=== PATIENT | male | born 1975 | race Caucasian/White ===

== ENCOUNTER 2018-07-04 10:59 | Emergency (ER) | payer OTHER ==
[2018-07-04 12:53] LABS: Absolute Monocytes 0.6 K/uL (0.1-1.3); Absolute Neutrophil 4.4 K/uL (1.8-8.0); Basophils % 0.4 % (0-1.3); Eosinophils % 1.7 % (0-4.4); Hematocrit 45.9 % (39.6-49.0); Lymphocytes % 16.8 % (15.3-44.8); MCH 32.8 pg (27.0-35.0); MPV 9.3 fL (7.6-11.3); Monocytes % 9.2 % (3.3-12.3); RBC Red Blood Cell Count 4.99 M/uL (4.33-5.43)
[2018-07-04 13:01] LABS: Protime INR 0.96
[2018-07-04 13:14] LABS: ALT/SGPT 34 U/L (12-78); AST/SGOT 20 U/L (15-37); Alkaline Phosphatase 78 U/L (45-117); BUN Blood Urea Nitrogen 15 mg/dL (7-18); Bicarbonate 30 mmol/L (21-32); Bilirubin Direct 0.1 mg/dL (0-0.2); Bilirubin Total 0.7 mg/dL (0.2-1.0); Glucose Level 83 mg/dL (74-106); Lipase 90 U/L (73-393); Magnesium 2.3 mg/dL (1.8-2.4); NT PRO-BNP 66 pg/mL (<125); Potassium 4.1 mmol/L (3.5-5.1); Protein, Total 7.8 g/dL (6.4-8.2); Sodium Level 144 mmol/L (136-145); Troponin (Emerg Dept Use Only) < 0.02 ng/mL (0.0-0.045)
[2018-07-04 13:57] LABS: Urine Blood NEGATIVE (NEG); Urine Glucose NEGATIVE (NEG); Urine Protein 1+ (NEG); Urine Specific Gravity 1.025 (1.005-1.030)
--- NOTE | 2018-07-04 14:42 | RAD REPORT ---
EXAM DESCRIPTION: RAD - Chest Single View - 07/04/2018 12:41 pm CLINICAL HISTORY: abd pain<Reason For Exam>abd pain Hypertension COMPARISON: No comparisons<Comparisons> TECHNIQUE: AP portable chest image was obtained 1235 hours . FINDINGS: Lungs are clear. Heart and vasculature are normal. No measurable pleural effusion and no p neumothorax. No gross bony abnormality seen. No acute aortic findings suspected. IMPRESSION: No acute cardiopulmonary process.
--- NOTE | 2018-07-04 14:46 | RAD REPORT ---
EXAM DESCRIPTION: CT - Abdomen Pelvis W Contrast - 07/04/2018 1:43 pm CLINICAL HISTORY: abd pain<Reason For Exam>abd pain COMPARISON: No comparisons<Comparisons> None. TECHNIQUE: Biphasic, helical CT imaging of the abdomen and pelvis was performed following 100 ml non -ionic IV contrast. Oral contrast was given. All CT scans are performed using dose optimization technique as appropriate and may include automated exposure control or mA/KV adjustment according to patient size. FINDINGS: No suspicious findings in the lung bases. The liver, spleen, and pancreas show no suspicious findings. Gallbladder is absent. No biliary tree d ilatation. Symmetric renal function is seen with no hydronephrosis or suspicious renal mass. Punctate nonobstruc ting caliceal calculi present. No pyelonephritis or acute renal parenchymal process. No urinary bladd er abnormality. No dilated bowel loops or bowel wall thickening. Appendix is normal. No free air, free fluid or infla mmatory stranding. No hernia, mass or bulky lymphadenopathy. Gastric surgical changes are noted. No acute gastric finding. No adrenal abnormality. No suspicious bony findings. IMPRESSION: Contrast enhanced CT abdomen and pelvis showing no significant or suspicious finding.
--- NOTE | 2018-07-04 15:03 | ER ---
Nurse's Notes [facility] Name: Jay Blanton Age: 43 yrs Sex: Male : 1975 Arrival Date: 07/04/2018 Time: 11:01 Bed 14 Private MD: None, None Diagnosis: Abdominal and pelvic pain;Epigastric pain Presentation: 07/04 11:08 Presenting complaint: Patient states: I feel like my BP has been running high and I get la1 a weird feeling in my stomach after I eat for the last month or so. Transition of care: patient was not received from another setting of care. Onset of symptoms was July 04, 2018. Risk Assessment: Do you want to hurt yourself or someone else? Patient reports no desire to harm self or others. Initial Sepsis Screen: Does the patient meet any 2 criteria? No. Patient's initial sepsis screen is negative. Does the patient have a suspected source of infection? No. Patient's initial sepsis screen is negative. Care prior to arrival: None. 11:08 Method Of Arrival: Ambulatory la1 11:08 Acuity: LEANN 3 la1 Triage Assessment: 11:10 General: Appears in no apparent distress. uncomfortable, Behavior is calm, cooperative, hj appropriate for age. Pain: Denies pain. 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 - Social history:: Smoking status: unknown. - Ebola Screening: : No symptoms or risks identified at this time. Screenin:10 Abuse screen: Denies threats or abuse. Denies injuries from another. Nutritional hj screening: No deficits noted. Tuberculosis screening: No symptoms or risk factors identified. Fall Risk None identified. Assessment: 11:10 General: Appears in no apparent distress. uncomfortable, Behavior is calm, cooperative, hj appropriate for age. Pain: Denies pain. Neuro: Level of Consciousness is awake, alert, obeys commands, Oriented to person, place, time, situation, Appropriate for age. Cardiovascular: Denies chest pain, Heart tones S1 S2 present Capillary refill < 3 seconds Patient's skin is warm and dry. Respiratory: Airway is patent Respiratory effort is even, unlabored, Respiratory pattern is regular, symmetrical. GI: No signs and/or symptoms were reported involving the gastrointestinal system. : No signs and/or symptoms were reported regarding the genitourinary system. EENT: No signs and/or symptoms were reported regarding the EENT system. Derm: No signs and/or symptoms reported regarding the dermatologic system. Musculoskeletal: No signs and/or symptoms reported regarding the musculoskeletal system. 12:30 Reassessment: Patient and/or family updated on plan of care and expected duration. Pain hj level reassessed. Patient is alert, oriented x 3, equal unlabored respirations, skin warm/dry/pink. awaiting labs and POC;. 13:30 Reassessment: Patient and/or family updated on plan of care and expected duration. Pain hj level reassessed. Patient is alert, oriented x 3, equal unlabored respirations, skin warm/dry/pink. wheeled to CT;. 13:54 Reassessment: Patient and/or family updated on plan of care and expected duration. Pain hj level reassessed. Patient is alert, oriented x 3, equal unlabored respirations, skin warm/dry/pink. back from, CT;. Vital Signs: 11:10 BP 156 / 96; Pulse 103; Resp 19; Temp 97.8(TE); Pulse Ox 100% on R/A; Weight 95.25 kg la1 (R); 12:30 BP 155 / 98; Pulse 95; Resp 18; Pulse Ox 100% on R/A; hj 13:55 BP 158 / 94; Pulse 96; Resp 18; Pulse Ox 100% on R/A; hj ED Course: 11:01 Patient arrived in ED. la1 11:01 None, None is Private Physician. la1 11:09 Triage completed. la1 11:10 Arm band placed on left wrist. la1 11:10 Patient has correct armband on for positive identification. Placed in gown. Bed in low hj position. Call light in reach. Side rails up X 1. Adult w/ patient. 11:17 Jesus Ferraro, DEWAYNE is Primary Nurse. hj 11:42 Alex Cadena MD is Attending Physician. kdr 11:55 EKG done, by ED staff, reviewed by Alex Cadena MD. [facility] 12:30 Missed attempt(s): 20 gauge in left antecubital area. mh5 12:30 Initial lab(s) drawn, by me, sent to lab. Inserted saline lock: 22 gauge in right hj forearm, using aseptic technique. Blood collected. 12:58 Urine collected: clean catch specimen, clear. Missed attempt(s):. mh5 13:18 Chest Single View In Process Unspecified. EDMS 13:39 CT completed. Patient moved to CT via wheelchair. Patient moved back from CT. la2 13:43 Abdomen In Process Unspecified. EDMS 15:01 Marvin Sharma MD is Referral Physician. kdr 15:08 No provider procedures requiring assistance completed. IV discontinued, intact, hj bleeding controlled, No redness/swelling at site. Pressure dressing applied. Administered Medications: No medications were administered Outcome: 15:02 Discharge ordered by . kdr 15:08 Discharged to home ambulatory, with family. hj 15:08 Condition: stable 15:08 Discharge instructions given to patient, family, Instructed on discharge instructions, follow up and referral plans. medication usage, Demonstrated understanding of instructions, follow-up care, medications, Prescriptions given X 1. 15:09 Patient left the ED. Signatures: Dispatcher [employer] EDMS Alex Cadena MD MD [facility] David Begr RN RN Jesus Peters, Nisha Herrera RN [facility] Rachna Oteor2
--- NOTE | 2018-07-04 15:03 | EDPHYS ---
Physician Documentation [facility] Name: Jay Blanton Age: 43 yrs Sex: Male : 1975 Arrival Date: 07/04/2018 Time: 11:01 Bed 14 Private MD: None, None ED Physician Alex Cadena HPI: 07/04 15:49 This 43 yrs old Male presents to ER via Ambulatory with complaints of High kdr Blood Pressure, Fast Heart Rate. 15:49 The patient states that for the pasts few months, he has had the feeling after eating kdr that his BP was increasing and he had an uneasy epigastric feeling. His symptoms have been vague and recurrent. he had not sought treatment previously. . Onset: The symptoms/episode began/occurred gradually, Intermittently for the past few months. Severity of symptoms: At their worst the symptoms were mild in the emergency department the symptoms are unchanged. The patient has experienced similar episodes in the past, multiple times. The patient has not recently seen a physician. 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 - Social history:: Smoking status: unknown. - Ebola Screening: : No symptoms or risks identified at this time. ROS: 15:49 Constitutional: Negative for fever, chills, and weight loss, Eyes: Negative for injury, kdr pain, redness, and discharge, ENT: Negative for injury, pain, and discharge, Neck: Negative for injury, pain, and swelling, Cardiovascular: Negative for chest pain, palpitations, and edema, Respiratory: Negative for shortness of breath, cough, wheezing, and pleuritic chest pain, Back: Negative for injury and pain, : Negative for injury, bleeding, discharge, and swelling, MS/Extremity: Negative for injury and deformity, Skin: Negative for injury, rash, and discoloration, Psych: Negative for depression, anxiety, suicide ideation, homicidal ideation, and hallucinations, Allergy/Immunology: Negative for hives, rash, and allergies, Endocrine: Negative for neck swelling, polydipsia, polyuria, polyphagia, and marked weight changes, Hematologic/Lymphatic: Negative for swollen nodes, abnormal bleeding, and unusual bruising. 15:49 Abdomen/GI: Positive for abdominal pain, Negative for vomiting, diarrhea, constipation, abdominal cramps, abdominal distension, anorexia, dysphagia, hematemesis, black/tarry stool, rectal pain, rectal bleeding. 15:49 Neuro: Positive for dizziness, Negative for altered mental status, gait disturbance, headache, hearing loss, loss of consciousness, numbness, seizure activity, speech changes, syncope, near syncope, tingling, tinnitus, tremor, visual changes, weakness. Exam: 15:49 Constitutional: This is a well developed, well nourished patient who is awake, alert, kdr and in no acute distress. Head/Face: Normocephalic, atraumatic. Eyes: Pupils equal round and reactive to light, extra-ocular motions intact. Lids and lashes normal. Conjunctiva and sclera are non-icteric and not injected. Cornea within normal limits. Periorbital areas with no swelling, redness, or edema. Neck: Trachea midline, no thyromegaly or masses palpated, and no cervical lymphadenopathy. Supple, full range of motion without nuchal rigidity, or vertebral point tenderness. No Meningismus. Chest/axilla: Normal chest wall appearance and motion. Nontender with no deformity. No lesions are appreciated. Cardiovascular: Regular rate and rhythm with a normal S1 and S2. No gallops, murmurs, or rubs. Normal PMI, no JVD. No pulse deficits. Respiratory: Lungs have equal breath sounds bilaterally, clear to auscultation and percussion. No rales, rhonchi or wheezes noted. No increased work of breathing, no retractions or nasal flaring. Abdomen/GI: Soft, non-tender, with normal bowel sounds. No distension or tympany. No guarding or rebound. No evidence of tenderness throughout. Back: No spinal tenderness. No costovertebral tenderness. Full range of motion. Skin: Warm, dry with normal turgor. Normal color with no rashes, no lesions, and no evidence of cellulitis. MS/ Extremity: Pulses equal, no cyanosis. Neurovascular intact. Full, normal range of motion. Neuro: Awake and alert, GCS 15, oriented to person, place, time, and situation. Cranial nerves II-XII grossly intact. Motor strength 5/5 in all extremities. Sensory grossly intact. Cerebellar exam normal. Normal gait. Psych: Awake, alert, with orientation to person, place and time. Behavior, mood, and affect are within normal limits. Vital Signs: 11:10 BP 156 / 96; Pulse 103; Resp 19; Temp 97.8(TE); Pulse Ox 100% on R/A; Weight 95.25 kg la1 (R); 12:30 BP 155 / 98; Pulse 95; Resp 18; Pulse Ox 100% on R/A; hj 13:55 BP 158 / 94; Pulse 96; Resp 18; Pulse Ox 100% on R/A; hj MDM: 15:02 Patient medically screened. kdr 15:49 Data reviewed: vital signs, nurses notes, lab test result(s), EKG, radiologic studies. kdr Counseling: I had a detailed discussion with the patient and/or guardian regarding: the historical points, exam findings, and any diagnostic results supporting the discharge/admit diagnosis, lab results, radiology results, the need for outpatient follow up. Special discussion: Based on the patient's history, exam, and Dx evaluation, there is no indication for emergent intervention or inpatient Tx. It is understood by the patient/guardian that if the Sx's persist or worsen they need to return immediately for re-evaluation. Based on the patient's Hx, exam, and Dx evaluation, there is no indication for emergent surgery or inpatient Tx. It is understood by the patient/guardian that if the Sx's persist or worsen they need to return immediately for re-evaluation. I discussed with the patient/guardian in detail that at this point there is no indication for admission to the hospital. It is understood, however, that if the symptoms persist or worsen the patient needs to return immediately for re-evaluation. ED course: The patient was pain free while in the ED. 07/04 12:56 Order name: CBC with Automated Diff; Complete Time: 13:01 [facility] 07/04 13:04 Order name: Protime (+INR) [facility] 07/04 13:04 Order name: PTT, Activated Partial Thromb [facility] 07/04 13:12 Order name: Basic Metabolic Panel [facility] 07/04 13:12 Order name: Lipase [facility] 07/04 11:52 Order name: XRAY Chest (1 view) [facility] 07/04 11:52 Order name: EKG; Complete Time: 12:44 [facility] 07/04 11:52 Order name: Cardiac monitoring; Complete Time: 12:09 [facility] 07/04 11:52 Order name: EKG - Nurse/Tech; Complete Time: 12:09 [facility] 07/04 11:52 Order name: IV Saline Lock; Complete Time: 12:50 [facility] 07/04 11:52 Order name: Labs collected and sent; Complete Time: 12:50 [facility] 07/04 11:52 Order name: O2 Per Protocol; Complete Time: 12:09 [facility] 07/04 13:12 Order name: Abdomen [facility] 07/04 13:12 Order name: EKG Electrocardiogram; Complete Time: 14:23 [facility] 07/04 13:12 Order name: Liver (Hepatic) Function [facility] 07/04 13:12 Order name: Magnesium [facility] 07/04 13:12 Order name: NT PRO-BNP [facility] 07/04 13:12 Order name: Troponin (Emerg Dept Use Only) [facility] 07/04 13:12 Order name: Chest Single View [facility] 07/04 13:21 Order name: Urine Dipstick--Ancillary (enter results) 07/04 11:52 Order name: O2 Sat Monitoring; Complete Time: 12:09 [facility] 07/04 11:52 Order name: Urine Dipstick-Ancillary (obtain specimen); Complete Time: 14:23 kdr Administered Medications: No medications were administered Disposition: 07/04/18 15:02 Discharged to Home. Impression: Abdominal and pelvic pain, Epigastric pain. - Condition is Stable. - Discharge Instructions: Abdominal Pain, Adult, [id number]. - Prescriptions for Bentyl 20 mg Oral Tablet - take 1 tablet by ORAL route every 6 hours As needed; 10 tablet. - Medication Reconciliation Form, Thank You Letter form. - Follow up: Private Physician; When: 2 - 3 days; Reason: If symptoms return, Further diagnostic work-up, Recheck today's complaints, Continuance of care, Re-evaluation by your physician. Follow up: Marvin Sharma MD; When: 2 - 3 days; Reason: If symptoms return, Further diagnostic work-up, Recheck today's complaints, Continuance of care, Re-evaluation by your physician. - Problem is an ongoing problem. - Symptoms are resolved. Signatures: Dispatcher [employer] [facility] Alex Cadena MD MD kdr David Berg, RN RN la1 Jesus Ferraro RN RN hj Corrections: (The following items were deleted from the chart) 13:44 12:44 Abdomen Pelvis W Con+CT.RAD.BRZ ordered. EDMS EDMS 14:11 12:44 BASIC METABOLIC PANEL+C.LAB.BRZ ordered. EDMS EDMS 14:11 12:44 CBC+H.LAB.BRZ ordered. EDMS EDMS 14:11 12:44 HEPATIC FUNCTION+C.LAB.BRZ ordered. EDMS EDMS 14:11 12:44 MAGNESIUM+C.LAB.BRZ ordered. EDMS EDMS 14:11 12:44 PROBNP+C.LAB.BRZ ordered. EDMS EDMS 14:11 12:44 TROPONIN ([facility] DEPT USE ONLY)+C.LAB.BRZ ordered. EDMS EDMS 14:11 12:44 LIPASE+C.LAB.BRZ ordered. EDMS EDMS 14:12 12:44 PROTIME (+INR)+COAG.LAB.BRZ ordered. EDMS EDMS 14:12 12:44 PTT, ACTIVATED+COAG.LAB.BRZ ordered. EDMS EDMS 15:09 15:02 07/04/2018 15:02 Discharged to Home. Impression: Abdominal and pelvic pain; hj Epigastric pain. Condition is Stable. Forms are Medication Reconciliation Form, Thank You Letter, Antibiotic Education, Prescription Opioid Use. Follow up: Private Physician; When: 2 - 3 days; Reason: If symptoms return, Further diagnostic work-up, Recheck today's complaints, Continuance of care, Re-evaluation by your physician. Follow up: Marvin Sharma; When: 2 - 3 days; Reason: If symptoms return, Further diagnostic work-up, Recheck today's complaints, Continuance of care, Re-evaluation by your physician. Problem is an ongoing problem. Symptoms are resolved. kdr
--- NOTE | 2018-07-05 08:38 | EKG ---
Test Date: 2018-07-04 Test Time: 11:50:15 Machine Greaser: JULIO MEASUREMENT RESULTS: Intervals: Rate: 80 [place]: 180 QRSD: 84 QT: 350 QTc: 403 [place]: P: 39 [place]: 180 QRS: 17 T: 8 INTERPRETIVE STATEMENTS: Normal sinus rhythm Normal ECG No previous ECG available for comparison Electronically Signed On 07-05-18 08:36:31 CDT by Clark Mora
== END 2018-07-04 15:09 | disposition home or self-care (01) ==
LOC: ER 10:59
DX: R10.13 Epigastric pain (principal); R10.2 Pelvic and perineal pain; I10 Essential (primary) hypertension
CPT/HCPCS: 36415; 71045; 74177; 80048; 80076; 81003; 83690; 83735; 83880; 84484; 85025; 85610; 85730; 93005; 99284; Q9967